=== PATIENT | female | born 1930 | race Caucasian/White ===

== ENCOUNTER → 2017-12-30 | Outpatient (CLI) | payer MEDICARE, OTHER ==
[~2017-12-30] MED LIST: ASPI81CH PO; AZIT500 PO; FOLI1 PO; LEVSOD50 PO; LIDO700A20 TOP; LISI5 PO; Miralax17 GM PO; NITR100CA PO; Norco 5-325 Ta1 EACH PO; POTCHL20ER PO; SACC250C PO; TORS10 PO
== END | disposition home or self-care (01) ==
LOC: LAB UCHC 15:21 → LAB SHORT 15:21
DX: N39.0 Urinary tract infection, site not specified (principal); R06.00 Dyspnea, unspecified; R44.3 Hallucinations, unspecified
CPT/HCPCS: 87077; 87086; 87186

== ENCOUNTER 2018-01-01 14:10 | Inpatient (IN) | payer MEDICARE, OTHER ==
[~2018-01-01] VITALS: Ht 152.4 cm; Wt 49.6 kg
[~2018-01-01 14:10] MED LIST changes: -AZIT500 PO; -LISI5 PO; -Miralax17 GM PO; -POTCHL20ER PO; -SACC250C PO; -TORS10 PO
[2018-01-01 14:54] LABS: PCO2 Arterial 27.7 mmHg (35-45); PO2 Arterial 47.2 mmHg (80-100); pH Blood Arterial 7.44 (7.35-7.45)
[2018-01-01 15:23] LABS: BASOPHILS ABSOLUTE AUTO 0.06 K/mm3 (0.00-0.23); BASOPHILS PERCENT AUTO 0 % (0-2); Hematocrit 41.3 % (33.0-51.0); LYMPHOCYTES ABSOLUTE AUTO 0.97 K/mm3 (0.84-5.20); LYMPHOCYTES PERCENT AUTO 7 % (21-46); MONOCYTES ABSOLUTE AUTO 0.65 K/mm3 (0.16-1.47); MONOCYTES PERCENT AUTO 5 % (4-13); Mean Corpuscular HGB Conc 31.5 g/dL (31.5-36.5); Mean Corpuscular Volume 102 fL (80-100); Mean Platelet Volume 11.6 fL (9.1-12.4); Platelet Count 176 K/mm3 (150-400); RDW Standard Deviation 48.5 fL (35.1-46.3); Red Blood Cell Count 4.06 M/mm3 (3.80-5.20); White Blood Cell Count 13.57 K/mm3 (4.00-11.30)
[2018-01-01 15:24] LABS: EOSINOPHILS PERCENT AUTO 0 % (0-6); IMMATURE GRAN ABSOLUTE AUTO 0.06 K/mm3 (0.00-0.10); IMMATURE GRAN PERCENT AUTO 0 % (0-1); NEUTROPHILS ABSOLUTE AUTO 11.83 K/mm3 (1.96-9.15); NEUTROPHILS PERCENT AUTO 87 % (41-73)
[2018-01-01 15:27] LABS: Influenza A Negative (NEGATIVE); Influenza B Negative (NEGATIVE)
[2018-01-01 16:03] LABS: Albumin, Blood 2.5 g/dL (3.4-5.0); Albumin/Globulin Ratio 0.4 (0.8-1.8); Bilirubin, Total 0.8 mg/dL (0.1-1.0); Bun/Creatinine Ratio 26.7 (12.0-20.0); Calcium, Blood 9.5 mg/dL (8.5-10.1); Creatinine, Blood 1.31 mg/dL (0.40-1.00); Globulin, Blood 6.4 g/dL (2.2-4.0); Potassium, Blood 5.4 mmol/L (3.5-5.5); Total Protein, Blood 8.9 g/dL (6.4-8.2)
[2018-01-02 05:31] LABS: Hematocrit 31.9 % (33.0-51.0); Hemoglobin 10.6 g/dL (11.5-16.0); Mean Corpuscular HGB 32.7 pg (26.0-34.0); Mean Corpuscular HGB Conc 33.2 g/dL (31.5-36.5); Mean Platelet Volume 10.6 fL (9.1-12.4); Platelet Count 175 K/mm3 (150-400); RDW Coefficient Variation 12.9 % (11.7-14.2); RDW Standard Deviation 46.5 fL (35.1-46.3); Red Blood Cell Count 3.24 M/mm3 (3.80-5.20); White Blood Cell Count 13.59 K/mm3 (4.00-11.30)
[2018-01-02 05:41] LABS: Mean Corpuscular Volume 99 fL (80-100)
[2018-01-02 06:15] LABS: Albumin, Blood 1.9 g/dL (3.4-5.0); Anion Gap 11 mmol/L (6-16); Blood Urea Nitrogen 32 mg/dL (8-24); Bun/Creatinine Ratio 32.3 (12.0-20.0); CO2, Blood 21 mmol/L (21-32); Calcium, Blood 8.5 mg/dL (8.5-10.1); Chloride, Blood 112 mmol/L (98-108); Creatinine, Blood 0.99 mg/dL (0.40-1.00); Glomerular Filtration Rate 56 (60-); Glucose, Blood 274 mg/dL (70-99); Phosphorus, Blood 2.1 mg/dL (2.5-4.9); Potassium, Blood 3.4 mmol/L (3.5-5.5); Sodium, Blood 144 mmol/L (136-145)
[2018-01-02 06:56] LABS: Thyroid Stimulating Hormone 0.139 uIU/mL (0.360-4.800)
[2018-01-03 05:07] LABS: BASOPHILS PERCENT AUTO 0 % (0-2); EOSINOPHILS ABSOLUTE AUTO 0.02 K/mm3 (0.00-0.68); EOSINOPHILS PERCENT AUTO 0 % (0-6); IMMATURE GRAN ABSOLUTE AUTO 0.05 K/mm3 (0.00-0.10); IMMATURE GRAN PERCENT AUTO 0 % (0-1); LYMPHOCYTES ABSOLUTE AUTO 1.17 K/mm3 (0.84-5.20); LYMPHOCYTES PERCENT AUTO 10 % (21-46); MONOCYTES ABSOLUTE AUTO 0.34 K/mm3 (0.16-1.47); MONOCYTES PERCENT AUTO 3 % (4-13); Mean Corpuscular HGB 32.1 pg (26.0-34.0); Mean Corpuscular HGB Conc 32.3 g/dL (31.5-36.5); Mean Corpuscular Volume 99 fL (80-100); Mean Platelet Volume 11.1 fL (9.1-12.4); NEUTROPHILS ABSOLUTE AUTO 10.13 K/mm3 (1.96-9.15); NEUTROPHILS PERCENT AUTO 87 % (41-73); Platelet Count 184 K/mm3 (150-400); RDW Coefficient Variation 13.2 % (11.7-14.2); RDW Standard Deviation 47.8 fL (35.1-46.3); Red Blood Cell Count 3.12 M/mm3 (3.80-5.20); White Blood Cell Count 11.71 K/mm3 (4.00-11.30)
[2018-01-03 05:35] LABS: Anion Gap 11 mmol/L (6-16); Blood Urea Nitrogen 24 mg/dL (8-24); Bun/Creatinine Ratio 34.6 (12.0-20.0); CO2, Blood 23 mmol/L (21-32); Calcium, Blood 8.6 mg/dL (8.5-10.1); Chloride, Blood 111 mmol/L (98-108); Creatinine, Blood 0.69 mg/dL (0.40-1.00); Glomerular Filtration Rate >60 (60-); Glucose, Blood 119 mg/dL (70-99); Sodium, Blood 145 mmol/L (136-145)
[2018-01-03 05:37] LABS: Free Thyroxine 1.18 ng/dL (0.70-1.60)
[2018-01-04 05:39] LABS: Hematocrit 33.5 % (33.0-51.0); Hemoglobin 10.9 g/dL (11.5-16.0); Mean Corpuscular HGB 31.8 pg (26.0-34.0); Mean Corpuscular HGB Conc 32.5 g/dL (31.5-36.5); Mean Corpuscular Volume 98 fL (80-100); Mean Platelet Volume 11.3 fL (9.1-12.4); Platelet Count 206 K/mm3 (150-400); RDW Coefficient Variation 13.2 % (11.7-14.2); RDW Standard Deviation 46.8 fL (35.1-46.3); Red Blood Cell Count 3.43 M/mm3 (3.80-5.20); White Blood Cell Count 11.08 K/mm3 (4.00-11.30)
[2018-01-04 06:01] LABS: Anion Gap 12 mmol/L (6-16); Blood Urea Nitrogen 16 mg/dL (8-24); CO2, Blood 20 mmol/L (21-32); Calcium, Blood 8.7 mg/dL (8.5-10.1); Chloride, Blood 108 mmol/L (98-108); Creatinine, Blood 0.62 mg/dL (0.40-1.00); Glomerular Filtration Rate >60 (60-); Glucose, Blood 216 mg/dL (70-99); Magnesium, Blood 1.7 mg/dL (1.6-2.4); Phosphorus, Blood 2.4 mg/dL (2.5-4.9); Potassium, Blood 3.7 mmol/L (3.5-5.5); Sodium, Blood 140 mmol/L (136-145)
[2018-01-04 06:04] LABS: Triiodothyronine, Free 1.04 pg/mL (2.18-3.98)
[2018-01-04 18:16] LABS: PCO2 Arterial 24.8 mmHg (35-45); PO2 Arterial 60.9 mmHg (80-100); pH Blood Arterial 7.51 (7.35-7.45)
[2018-01-05 05:56] LABS: Albumin, Blood 2.2 g/dL (3.4-5.0); Anion Gap 15 mmol/L (6-16); Blood Urea Nitrogen 34 mg/dL (8-24); Bun/Creatinine Ratio 41.9 (12.0-20.0); CO2, Blood 19 mmol/L (21-32); Calcium, Blood 8.8 mg/dL (8.5-10.1); Chloride, Blood 109 mmol/L (98-108); Creatinine, Blood 0.81 mg/dL (0.40-1.00); Glomerular Filtration Rate >60 (60-); Glucose, Blood 267 mg/dL (70-99); Phosphorus, Blood 4.1 mg/dL (2.5-4.9); Sodium, Blood 143 mmol/L (136-145)
[2018-01-05 08:00] LABS: PCO2 Arterial 25.9 mmHg (35-45); PO2 Arterial 265 mmHg (80-100); pH Blood Arterial 7.52 (7.35-7.45)
[2018-01-05 08:01] LABS: Hematocrit 32.2 % (33.0-51.0); Hemoglobin 10.5 g/dL (11.5-16.0); Mean Corpuscular HGB Conc 32.6 g/dL (31.5-36.5); Mean Corpuscular Volume 98 fL (80-100); Mean Platelet Volume 11.3 fL (9.1-12.4); Platelet Count 234 K/mm3 (150-400); RDW Coefficient Variation 13.3 % (11.7-14.2); RDW Standard Deviation 47.7 fL (35.1-46.3); Red Blood Cell Count 3.28 M/mm3 (3.80-5.20); White Blood Cell Count 12.58 K/mm3 (4.00-11.30)
[2018-01-05 08:28] LABS: BASOPHILS PERCENT MAN 0 % (0-2); EOSINOPHILS PERCENT MAN 0 % (0-6); LYMPHOCYTES ABSOLUTE MAN 0.62 K/mm3 (0.84-5.20); LYMPHOCYTES PERCENT MAN 5 % (21-46); MONOCYTES ABSOLUTE MAN 0.25 K/mm3 (0.16-1.47); MONOCYTES PERCENT MAN 2 % (4-13); NEUTROPHILS ABSOLUTE MAN 11.69 K/mm3 (1.96-9.15); SEG NEUTROPHILS PERCENT MAN 93 % (41-73); TOTAL CELLS COUNTED 100
[2018-01-05 20:27] LABS: Creatine Kinase MB 2.9 ng/mL (0.0-3.6); Creatine Kinase MB Index 7.1 (0.0-4.0)
[2018-01-05 20:35] LABS: Troponin I 0.576 ng/mL (0.000-0.040)
[2018-01-06 04:53] LABS: Hematocrit 30.4 % (33.0-51.0); Hemoglobin 9.8 g/dL (11.5-16.0); Mean Corpuscular HGB 31.9 pg (26.0-34.0); Mean Corpuscular HGB Conc 32.2 g/dL (31.5-36.5); Mean Corpuscular Volume 99 fL (80-100); Mean Platelet Volume 11.6 fL (9.1-12.4); Platelet Count 252 K/mm3 (150-400); RDW Coefficient Variation 13.4 % (11.7-14.2); RDW Standard Deviation 48.2 fL (35.1-46.3); Red Blood Cell Count 3.07 M/mm3 (3.80-5.20); White Blood Cell Count 11.66 K/mm3 (4.00-11.30)
[2018-01-06 05:13] LABS: Albumin, Blood 2.1 g/dL (3.4-5.0); Anion Gap 11 mmol/L (6-16); Blood Urea Nitrogen 36 mg/dL (8-24); Bun/Creatinine Ratio 40.6 (12.0-20.0); CHOL/HDL RATIO 3.9; CO2, Blood 25 mmol/L (21-32); Calcium, Blood 8.2 mg/dL (8.5-10.1); Chloride, Blood 109 mmol/L (98-108); Cholesterol 94 mg/dL (50-200); Creatinine, Blood 0.89 mg/dL (0.40-1.00); Glomerular Filtration Rate >60 (60-); Glucose, Blood 155 mg/dL (70-99); HDL Cholesterol 24 mg/dL (>39); LDL/HDL RATIO 1.9; Low Density Lipoprotein Chol 45 mg/dL (0-110); Phosphorus, Blood 2.9 mg/dL (2.5-4.9); Potassium, Blood 3.1 mmol/L (3.5-5.5); Sodium, Blood 145 mmol/L (136-145); Triglycerides 124 mg/dL (30-160); Very Low Density Lipoprot Chol 24 mg/dL (6-32)
[2018-01-06 05:16] LABS: Creatine Kinase MB 2.1 ng/mL (0.0-3.6); Creatine Kinase MB Index 5.4 (0.0-4.0); Troponin I 0.428 ng/mL (0.000-0.040)
[2018-01-07 05:17] LABS: Anion Gap 10 mmol/L (6-16); Blood Urea Nitrogen 35 mg/dL (8-24); Bun/Creatinine Ratio 42.1 (12.0-20.0); CO2, Blood 27 mmol/L (21-32); Calcium, Blood 8.2 mg/dL (8.5-10.1); Chloride, Blood 111 mmol/L (98-108); Creatinine, Blood 0.83 mg/dL (0.40-1.00); Glomerular Filtration Rate >60 (60-); Glucose, Blood 138 mg/dL (70-99); Potassium, Blood 3.1 mmol/L (3.5-5.5); Sodium, Blood 148 mmol/L (136-145)
[2018-01-07] MEDS ORDERED: AZIT500 PO (11:45)
[2018-01-07] MEDS ORDERED: Miralax17 GM PO (11:46)
[2018-01-07] MEDS ORDERED: SACC250C PO (11:47)
[2018-01-07] MEDS ORDERED: LISI5 PO (11:48)
[2018-01-07] MEDS ORDERED: TORS10 PO (11:49)
[2018-01-07] MEDS ORDERED: POTCHL20ER PO (11:49)
== END 2018-01-07 16:08 | disposition home or self-care (01) | DRG 291 ==
LOC: ER 14:10 → MEDS 15:19 → ENPENDDIS 01-07 11:00 → MEDS 01-07 16:08
PROVIDERS: Emergency Medicine; Internal Medicine
DX: I50.41 Acute combined systolic (congestive) and diastolic (congestive) heart failure (principal); G92 Toxic encephalopathy; J96.01 Acute respiratory failure with hypoxia; J18.9 Pneumonia, unspecified organism; N17.9 Acute kidney failure, unspecified; E87.2 Acidosis; R64 Cachexia; E86.0 Dehydration; N39.0 Urinary tract infection, site not specified; B96.20 Unspecified Escherichia coli [E. coli] as the cause of diseases classified elsewhere; R13.10 Dysphagia, unspecified; E87.6 Hypokalemia; Z86.73 Personal history of transient ischemic attack (TIA), and cerebral infarction without residual deficits; E03.9 Hypothyroidism, unspecified; Z96.642 Presence of left artificial hip joint; Z87.891 Personal history of nicotine dependence; Z66 Do not resuscitate; Z79.82 Long term (current) use of aspirin
CPT/HCPCS: 36415; 36600; 71045; 71046; 80048; 80053; 80061; 80069; 82550; 82553; 82803; 83605; 83735; 83880; 84439; 84443; 84481; 84484; 85025; 85027; 87040; 87077; 87086; 87186; 87804; 92610; 93005; 93010; 94640; 94760; 96365; 96375; 97110; 97116; 97162; 97166; 97530; 97535; 99285; C8923; G8978; G8979; G8987; G8988; G8996; G8997; J0456; J0696; J1650; J1940; J2001; J3480; J7030; J7050; Q9957

== ENCOUNTER → 2018-03-05 | Outpatient (CLI) | payer MEDICARE, OTHER ==
[~2018-03-05] MED LIST changes: +AZIT500 PO; +LISI5 PO; +Miralax17 GM PO; +POTCHL20ER PO; +SACC250C PO; +TORS10 PO
[2018-03-05 14:52] LABS: Appearance, Urine Clear (Clear); Bilirubin, Urine Neg (Neg); Blood, Urine 1+ (Neg); Color, Urine Yellow (P-Yellow); Glucose Qualitative, Urine Neg (Neg); Ketones, Urine Neg (Neg); Leukocyte Esterase, Urine Neg (Neg); Nitrite, Urine Neg (Neg); Protein, Urine Neg (Neg); Specific Gravity, Urine 1.025 (1.003-1.022); Urobilinogen, Urine NORM (Normal)
[2018-03-05 15:06] LABS: Bacteria Rare /hpf; Red Blood Cells, Urine 0-2 /hpf (0-2); Squamous Epithelial Cells Mod /hpf (Few); White Blood Cells, Urine 0-2 /hpf (0-5)
== END | disposition home or self-care (01) ==
LOC: LAB HH 12:30
PROVIDERS: Radiology Therapeutic Radiology
DX: N39.0 Urinary tract infection, site not specified (principal)
CPT/HCPCS: 81001

== ENCOUNTER 2018-08-29 13:46 | Emergency (ER) | payer MEDICARE, OTHER ==
[~2018-08-29] VITALS: Ht 152.4 cm; Wt 50.8 kg
[~2018-08-29 13:46] MED LIST changes: -Benadryl Itch28.3 G1 TOP; -EUCERIN CREME TOP; -HYDHCL25 PO
[2018-08-29] MEDS ORDERED: Benadryl Itch28.3 G1 TOP (15:38)
[2018-08-29] MEDS ORDERED: HYDHCL25 PO (16:09)
[2018-08-29] MEDS ORDERED: EUCERIN CREME TOP (16:09)
== END 2018-08-29 16:16 | disposition home or self-care (01) ==
LOC: ER 13:46
DX: R21 Rash and other nonspecific skin eruption (principal); N28.9 Disorder of kidney and ureter, unspecified; Z79.899 Other long term (current) drug therapy; Z79.82 Long term (current) use of aspirin; Z86.73 Personal history of transient ischemic attack (TIA), and cerebral infarction without residual deficits; F03.90 Unspecified dementia, unspecified severity, without behavioral disturbance, psychotic disturbance, mood disturbance, and anxiety; Z87.891 Personal history of nicotine dependence
CPT/HCPCS: 99282

== ENCOUNTER → 2018-08-29 | Outpatient (CLI) | payer MEDICARE, OTHER ==
[~2018-08-29] MED LIST changes: +Benadryl Itch28.3 G1 TOP; +EUCERIN CREME TOP; +HYDHCL25 PO
[2018-08-29 12:51] LABS: BASOPHILS ABSOLUTE AUTO 0.06 K/mm3 (0.00-0.23); BASOPHILS PERCENT AUTO 1 % (0-2); EOSINOPHILS ABSOLUTE AUTO 0.23 K/mm3 (0.00-0.68); EOSINOPHILS PERCENT AUTO 3 % (0-6); Hematocrit 39.2 % (33.0-51.0); Hemoglobin 12.6 g/dL (11.5-16.0); IMMATURE GRAN ABSOLUTE AUTO 0.03 K/mm3 (0.00-0.10); IMMATURE GRAN PERCENT AUTO 0 % (0-1); LYMPHOCYTES PERCENT AUTO 32 % (21-46); MONOCYTES ABSOLUTE AUTO 0.56 K/mm3 (0.16-1.47); MONOCYTES PERCENT AUTO 6 % (4-13); Mean Corpuscular HGB 30.9 pg (26.0-34.0); Mean Corpuscular HGB Conc 32.1 g/dL (31.5-36.5); Mean Corpuscular Volume 96 fL (80-100); Mean Platelet Volume 10.3 fL (9.1-12.4); NEUTROPHILS ABSOLUTE AUTO 5.01 K/mm3 (1.96-9.15); NEUTROPHILS PERCENT AUTO 58 % (41-73); Platelet Count 196 K/mm3 (150-400); RDW Coefficient Variation 12.8 % (11.7-14.2); RDW Standard Deviation 45.1 fL (35.1-46.3); Red Blood Cell Count 4.08 M/mm3 (3.80-5.20); White Blood Cell Count 8.69 K/mm3 (4.00-11.30)
[2018-08-29 13:01] LABS: Albumin, Blood 3.7 g/dL (3.4-5.0); Albumin/Globulin Ratio 0.9 (0.8-1.8); Bilirubin, Total 0.3 mg/dL (0.1-1.0); Bun/Creatinine Ratio 13.3 (12.0-20.0); Calcium, Blood 8.8 mg/dL (8.5-10.1); Creatinine, Blood 1.43 mg/dL (0.40-1.00); Globulin, Blood 4.3 g/dL (2.2-4.0); Potassium, Blood 3.4 mmol/L (3.5-5.5)
== END | disposition home or self-care (01) ==
LOC: LAB EV 12:45 → LAB SHORT 12:45
PROVIDERS: General Practice
DX: L29.9 Pruritus, unspecified (principal)
CPT/HCPCS: 80053; 85025

== ENCOUNTER → 2019-01-29 | Outpatient (CLI) | payer MEDICARE, OTHER ==
[~2019-01-29] MED LIST changes: +Benadryl Itch28.3 G1 TOP; +EUCERIN CREME TOP; +HYDHCL25 PO
[2019-01-29 12:35] LABS: BASOPHILS ABSOLUTE AUTO 0.03 K/mm3 (0.00-0.23); BASOPHILS PERCENT AUTO 0 % (0-2); EOSINOPHILS ABSOLUTE AUTO 0.03 K/mm3 (0.00-0.68); EOSINOPHILS PERCENT AUTO 0 % (0-6); Hematocrit 35.3 % (33.0-51.0); Hemoglobin 11.3 g/dL (11.5-16.0); IMMATURE GRAN ABSOLUTE AUTO 0.05 K/mm3 (0.00-0.10); IMMATURE GRAN PERCENT AUTO 1 % (0-1); LYMPHOCYTES PERCENT AUTO 14 % (21-46); MONOCYTES ABSOLUTE AUTO 0.21 K/mm3 (0.16-1.47); MONOCYTES PERCENT AUTO 3 % (4-13); Mean Corpuscular HGB 31.1 pg (26.0-34.0); Mean Corpuscular Volume 97 fL (80-100); Mean Platelet Volume 9.6 fL (9.1-12.4); NEUTROPHILS ABSOLUTE AUTO 5.46 K/mm3 (1.96-9.15); NEUTROPHILS PERCENT AUTO 82 % (41-73); Platelet Count 176 K/mm3 (150-400); RDW Coefficient Variation 14.8 % (11.7-14.2); RDW Standard Deviation 51.8 fL (35.1-46.3); Red Blood Cell Count 3.63 M/mm3 (3.80-5.20); White Blood Cell Count 6.68 K/mm3 (4.00-11.30)
[2019-01-29 12:38] LABS: Bun/Creatinine Ratio 15.4 (12.0-20.0); Calcium, Blood 8.6 mg/dL (8.5-10.1); Creatinine, Blood 1.3 mg/dL (0.40-1.00); Potassium, Blood 3.5 mmol/L (3.5-5.5)
[2019-01-30 14:31] LABS: Appearance, Urine Cloudy (Clear); Bilirubin, Urine Neg (Neg); Blood, Urine 1+ (Neg); Color, Urine Yellow (P-Yellow); Glucose Qualitative, Urine Neg (Normal); Ketones, Urine Neg (Neg); Leukocyte Esterase, Urine 2+ (Neg); Nitrite, Urine Pos (Neg); Protein, Urine Trace (Neg); Urobilinogen, Urine NORM (Normal)
[2019-01-30 14:32] LABS: Bacteria Many /hpf; Squamous Epithelial Cells Few /hpf (Few)
[2019-01-30 14:34] LABS: White Blood Cells, Urine TNTC /hpf (0-5)
== END | disposition home or self-care (01) ==
LOC: LAB EV 12:29 → LAB SHORT 12:29
PROVIDERS: Physician Assistant Surgical
DX: R05 Cough (principal)
CPT/HCPCS: 80048; 81001; 85025

== ENCOUNTER 2019-04-04 14:21 | Inpatient (IN) | payer MEDICARE, OTHER ==
[~2019-04-04] VITALS: Ht 157.5 cm; Wt 52.2 kg
[2019-04-04] MEDS ORDERED: PRED20 PO (15:17)
[2019-04-04] MEDS ORDERED: EUTHYROX25 MCG PO (15:18)
[2019-04-04] MEDS ORDERED: FOLI400 PO (15:18)
[2019-04-04] MEDS ORDERED: CHOL10002 PO (15:19)
[2019-04-04 15:37] LABS: BASOPHILS ABSOLUTE AUTO 0.01 K/mm3 (0.00-0.23); BASOPHILS PERCENT AUTO 0 % (0-2); EOSINOPHILS ABSOLUTE AUTO 0.01 K/mm3 (0.00-0.68); EOSINOPHILS PERCENT AUTO 0 % (0-6); Hematocrit 39.3 % (33.0-51.0); Hemoglobin 12.1 g/dL (11.5-16.0); IMMATURE GRAN ABSOLUTE AUTO 0.11 K/mm3 (0.00-0.10); IMMATURE GRAN PERCENT AUTO 1 % (0-1); LYMPHOCYTES ABSOLUTE AUTO 1.35 K/mm3 (0.84-5.20); LYMPHOCYTES PERCENT AUTO 9 % (21-46); MONOCYTES ABSOLUTE AUTO 0.56 K/mm3 (0.16-1.47); MONOCYTES PERCENT AUTO 4 % (4-13); Mean Corpuscular HGB 30.9 pg (26.0-34.0); Mean Corpuscular HGB Conc 30.8 g/dL (31.5-36.5); Mean Corpuscular Volume 100 fL (80-100); Mean Platelet Volume 9.7 fL (9.1-12.4); NEUTROPHILS ABSOLUTE AUTO 12.89 K/mm3 (1.96-9.15); NEUTROPHILS PERCENT AUTO 86 % (41-73); Platelet Count 144 K/mm3 (150-400); RDW Coefficient Variation 14.1 % (11.7-14.2); RDW Standard Deviation 51.8 fL (35.1-46.3); Red Blood Cell Count 3.92 M/mm3 (3.80-5.20); White Blood Cell Count 14.93 K/mm3 (4.00-11.30)
[2019-04-04 15:50] LABS: Albumin, Blood 2.7 g/dL (3.4-5.0); Albumin/Globulin Ratio 0.7 (0.8-1.8); Bilirubin, Total 0.7 mg/dL (0.1-1.0); Calcium, Blood 8.3 mg/dL (8.5-10.1); Globulin, Blood 3.7 g/dL (2.2-4.0); Potassium, Blood 4.5 mmol/L (3.5-5.5); Total Protein, Blood 6.4 g/dL (6.4-8.2)
[2019-04-04 16:51] LABS: Source, Urine Clean Catch
[2019-04-04 17:08] LABS: Blood, Urine 4+ (Neg); Glucose Qualitative, Urine Neg (Neg); Ketones, Urine 1+ (Neg); Leukocyte Esterase, Urine 3+ (Neg); Nitrite, Urine Pos (Neg); Protein, Urine 3+ (Neg); Specific Gravity, Urine 1.025 (1.003-1.022); Urobilinogen, Urine 1+ (Normal)
[2019-04-04 17:39] LABS: Bilirubin, Urine 1+ (Neg)
[2019-04-04 17:40] LABS: Appearance, Urine Turbid (Clear); Color, Urine Amber (P-Yellow); Squamous Epithelial Cells Few /hpf (Few)
[2019-04-04 17:41] LABS: Amorphous Mod (0-Heavy); Bacteria Many /hpf; Red Blood Cells, Urine 0-2 /hpf (0-2); White Blood Cells, Urine TNTC /hpf (0-5)
--- NOTE | 2019-04-05 05:03 | NUR ---
SHIFT SUMMARY PT NEW ED ADMIT THIS EVENING. PT ALERT, ORIENTED TO SELF AND FAMILY. PT HAS A HX OF DEMENTIA. PLEASANTLY CONFUSED. GRANDDAUGHTER GAVE PT A SIP OF WATER AND PT HAD A VERY DIFFICULT TIME SWALLOWING IT. FAMILY REPORTS THAT PT HAS BEEN HAVING MORE AND MORE A DIFFICULT TIME SWALLOWING RECENTLY. DID NOT ATTEMPT TO GIVE PILLS AFTER. PT DOES NOT FOLLOW DIRECTIONS WELL. INCONTINENT OF URINE AND STOOL THIS EVENING. ATTENDS IN PLACE. PT REMAINED IN BED THROUGHOUT THE SHIFT. PT SLEPT WELL THROUGH MOST OF THE NIGHT WHEN NOT BEING WOKEN BY STAFF. PT DID NOT ATTEMPT TONIGHT TO GET OOB. HOWEVER, BED ALARM REMAINED ON FOR SAFETY. PT'S LUNGS COARSE. FAMILY REPORTS THIS IS PT'S BASELINE. PT REMAINS ON RA AND DOES APPEAR TO BE IN ANY RESPIRATORY DISTRESS. NONPRODUCTIVE COUGH AT TIMES. PT DENIES PAIN AND DOES NOT HAVE ANY NONVERBAL S/S OF PAIN. VSS. WILL CONTINUE TO MONITOR.
[2019-04-05 05:19] LABS: BASOPHILS ABSOLUTE AUTO 0.01 K/mm3 (0.00-0.23); BASOPHILS PERCENT AUTO 0 % (0-2); EOSINOPHILS ABSOLUTE AUTO 0.03 K/mm3 (0.00-0.68); EOSINOPHILS PERCENT AUTO 0 % (0-6); Hematocrit 34.6 % (33.0-51.0); Hemoglobin 10.7 g/dL (11.5-16.0); IMMATURE GRAN ABSOLUTE AUTO 0.09 K/mm3 (0.00-0.10); IMMATURE GRAN PERCENT AUTO 1 % (0-1); LYMPHOCYTES ABSOLUTE AUTO 1.33 K/mm3 (0.84-5.20); LYMPHOCYTES PERCENT AUTO 13 % (21-46); MONOCYTES ABSOLUTE AUTO 0.44 K/mm3 (0.16-1.47); MONOCYTES PERCENT AUTO 4 % (4-13); Mean Corpuscular HGB 30.8 pg (26.0-34.0); Mean Corpuscular HGB Conc 30.9 g/dL (31.5-36.5); Mean Corpuscular Volume 100 fL (80-100); NEUTROPHILS ABSOLUTE AUTO 8.25 K/mm3 (1.96-9.15); NEUTROPHILS PERCENT AUTO 81 % (41-73); Platelet Count 136 K/mm3 (150-400); RDW Coefficient Variation 13.8 % (11.7-14.2); RDW Standard Deviation 50.3 fL (35.1-46.3); Red Blood Cell Count 3.47 M/mm3 (3.80-5.20); White Blood Cell Count 10.15 K/mm3 (4.00-11.30)
[2019-04-05 05:36] LABS: Anion Gap 6 mmol/L (6-16); Blood Urea Nitrogen 17 mg/dL (8-24); Bun/Creatinine Ratio 19.7 (12.0-20.0); CO2, Blood 27 mmol/L (21-32); Calcium, Blood 8.2 mg/dL (8.5-10.1); Chloride, Blood 109 mmol/L (98-108); Creatinine, Blood 0.86 mg/dL (0.40-1.00); Glomerular Filtration Rate >60 (60-); Glucose, Blood 83 mg/dL (70-99); Potassium, Blood 3.2 mmol/L (3.5-5.5); Sodium, Blood 142 mmol/L (136-145)
--- NOTE | 2019-04-05 13:55 | NUR ---
Initial palliative care consult: Requested to see pt per nsg. Kathy is an 88 year old with a history of dementia. She lives with her dtr who is her paid caregiver. She has a [facility] piece work checker who pt's dtr cannot remember the name at this time. Dtr, Sher, and granddaughter, Elle, are at the bedside. Kathy is pleasantly confused during my visit. She is alert but forgetful. She is asking for coffee. She has macular degeneration. Sher reports Kathy has been on [facility] services in the past. She was discharged from hospice as she had improved. Sher reports for about the last month or so Kathy has started to decline. She is needing assistance with all ADLs. Her weight has decreased about 13 pounds. She currently has a UTI which family would like to have treated. They would like to resume hospice services when Kathy is discharged from the hospital. She has been incontinent recently and wears briefs. She has been having difficulty with swallowing at times. Sher would like to continue to care for Kathy at home if Kathy is able to ambulate with SBA. If Kathy isn't mobile, Sher reports that she will have to place her in a facility with hospice care. Explained that family would be responsible for cost of facility if pt is placed on hospice in a facility. Pt's granddaughter assists with her care when she is in town, however sharita reports she will be traveling for 6 weeks and will not be able to help out with Kathy's care needs. Family is requesting hospice referral. Pt will likely need a PT eval to establish her current level of function. Spoke with Virginia Keith, environmental restoration planner. Virginia plans to contact [facility] and pt's dtr, Sher. Spoke with Damaris [facility] hospice liason. Damaris will start an intake for pt. Virginia plans to speak with for orders after she talks to [facility] and Sher. Kathy needed to be fed lunch today. She is pleasantly confused and cooperative with care at this time. She denied any pain, nausea or SOB. She appears to be comfortable during the time of this visit. PC to follow for symptom management and care planning. Kathy has a POLST form at home. She is a DNR with limited interventions at this time according to her dtr and grddtr.
--- NOTE | 2019-04-05 19:28 | NUR ---
SHIFT SUMMARY- PT IS ALERT AND ORIENTED TO SELF AND FAMILY. PT HAS FREQUENT HALLUCINATIONS BUT IS EASILY REDIRECTABLE AND PLEASENT. PT IS A FALL RISK AND BED ALARM IS ON. PT USES THE BEDPAN BUT IS FREQUENTLY INCONTINENT. PT HAS HAD NO C/O PAIN T/O THE SHIFT. PT REQUIRES FEEDING ASSISTANCE HOWEVER SHE DID FEED HERSELF PART OF DINNER. PT HAS A PALLIATIVE CARE CONSULT AND THE PLAN IS FOR HER TO DISCHARGE ON HOSPICE. PER REPORT FROM THE FAMILY PT HAS BEEN ON HOSPICE BEFORE AND WAS DOING WELL SO SHE WAS REMOVED FROM IT, PT HAS BEEN STEADILY DECLINING SINCE HOSPICE DISCHARGE PER REPORT FROM HER FAMILY. PT EVAL IS ORDERED TO DETERMINE PT MOBILITY.
[2019-04-06 05:08] LABS: BASOPHILS ABSOLUTE AUTO 0.02 K/mm3 (0.00-0.23); BASOPHILS PERCENT AUTO 0 % (0-2); EOSINOPHILS ABSOLUTE AUTO 0.01 K/mm3 (0.00-0.68); EOSINOPHILS PERCENT AUTO 0 % (0-6); Hematocrit 38.3 % (33.0-51.0); Hemoglobin 11.9 g/dL (11.5-16.0); IMMATURE GRAN ABSOLUTE AUTO 0.11 K/mm3 (0.00-0.10); IMMATURE GRAN PERCENT AUTO 1 % (0-1); LYMPHOCYTES ABSOLUTE AUTO 1.17 K/mm3 (0.84-5.20); LYMPHOCYTES PERCENT AUTO 9 % (21-46); MONOCYTES ABSOLUTE AUTO 0.72 K/mm3 (0.16-1.47); MONOCYTES PERCENT AUTO 6 % (4-13); Mean Corpuscular HGB 31.5 pg (26.0-34.0); Mean Corpuscular HGB Conc 31.1 g/dL (31.5-36.5); Mean Corpuscular Volume 101 fL (80-100); NEUTROPHILS ABSOLUTE AUTO 10.94 K/mm3 (1.96-9.15); NEUTROPHILS PERCENT AUTO 84 % (41-73); RDW Coefficient Variation 13.4 % (11.7-14.2); RDW Standard Deviation 50.4 fL (35.1-46.3); Red Blood Cell Count 3.78 M/mm3 (3.80-5.20); White Blood Cell Count 12.97 K/mm3 (4.00-11.30)
[2019-04-06 05:20] LABS: Mean Platelet Volume 10.5 fL (9.1-12.4); Platelet Count 134 K/mm3 (150-400)
--- NOTE | 2019-04-06 06:16 | NUR ---
SHIFT SUMMARY ALERT TO SELF, ANSWERS WITH COFABULATION. DID NOT REST MUCH OVERNIGHT. NO C/O PAIN/DISCOMFORT. FREQUENT BED EXITS; EASILY RE-DIRECTED. VSS/AFEBRILE. NO ACUTE CHANGES OVERNIGHT. BED IN LOWEST POSITION. ALARM ON. CALL LIGHT AND BELONGINGS WITHIN REACH. WCTM.
--- NOTE | 2019-04-06 17:46 | NUR ---
PT IS AOX3 AND COOPERATIVE OF ALL CARE. PT HAS MOMENTS OF CONFUSION. PT WORKED WITH PHYSICAL THERAPY AND HAD FAMILY IN TO VISIT. PT'S DAUGHTER IS CONCERNED ABOUT HOW MUCH CARE PT WILL NEED AND HAD A CASEMANGER SUMMONED TO TALK WITH HER AND HER DAUGHTER. PT IN INCONTENT AND RESTING IN BED AT THIS TIME. WILL CONTINUE MONITOR.
--- NOTE | 2019-04-06 18:37 | NUR ---
[facility] care initial visit: Mrs. Yancey was alone in room and sideways in bed. She said she is comfortable that way. She is talkative and confused and we had a kayla, albeit disjointed conversation. She denied pain or worry. She did not know where she is, but this did not appear to bother her. Per chart, she is non-congregation. She appeared to enjoy companionship and touch. I will remain available to pt and family.
--- NOTE | 2019-04-06 22:48 | NUR ---
04/06/19 2240 NEW IV SITE STARTED. PT CONFUSED AND COMBATIVE WITH PROCEDURE AND 2 STAFF ASSISTED WITH PROCEDURE. PT ALSO HAS VUSUAL AND AUDITORY HALLUCINATIONS. REQUESTED "SMIRNOFF" EARLIER WHEN ASKED WHAT SHE WOULD LIKE TO DRINK. RE-ORIENTED TO SURROUNDINGS AND INFORMED ALCOHOLIC DRINKS ARE NOT ALLOWED IN HOSPITAL.
--- NOTE | 2019-04-07 05:22 | NUR ---
04/07/19 0515 SLEEPING HEAVILY BUT AROUSES WITH CARE. MED GIVEN AND REPOSITIONED TO OTHER SIDE. CARRIE-CARE GIVEN FOR INCONTINENCE. BARRIER CREAM TO PINK PERINEAL AREA.
[2019-04-07] MEDS ORDERED: DOCU100 PO (09:10)
[2019-04-07] MEDS ORDERED: Vsl#3 Capsule1 EACH PO (09:10)
[2019-04-07] MEDS ORDERED: CIPR250 PO (09:11)
--- NOTE | 2019-04-07 10:20 | NUR ---
discharge DR LLAMAS SPEAK TO FAMILY THIS AM, PLACE ORDERS FOR D/C HOME W HOSPICE. HOMEHEALTH/SAFETY RISK LEAD MAKE ARRANGEMENTS FOR HOSPICE. PT DAUGHTER & G-DAUGHTER IN TO ASSIST HER TO DRESS/GATHER BELONGINGS. D/C INSTRUCT PROVIDED TO THEM. IV D/C INTACT. PT ORIENTED TO SELF, LETHARGIC. REFUSED BF & MEDS THIS AM. IRRITABLE W CARE. W/C VAN TRANSPORTATION ARRANGED FOR 1100.
== END 2019-04-07 12:29 | disposition hospice, home (50) | DRG 689 ==
LOC: ER 14:21 → MEDS 19:04 → ENPENDDIS 04-07 08:47 → MEDS 04-07 12:29
PROVIDERS: Emergency Medicine; ADMIT Internal Medicine
DX: N39.0 Urinary tract infection, site not specified (principal); G92 Toxic encephalopathy; I50.42 Chronic combined systolic (congestive) and diastolic (congestive) heart failure; F03.90 Unspecified dementia, unspecified severity, without behavioral disturbance, psychotic disturbance, mood disturbance, and anxiety; E03.9 Hypothyroidism, unspecified; M19.90 Unspecified osteoarthritis, unspecified site; B96.20 Unspecified Escherichia coli [E. coli] as the cause of diseases classified elsewhere; I11.0 Hypertensive heart disease with heart failure; Z66 Do not resuscitate; Z86.718 Personal history of other venous thrombosis and embolism; Z87.440 Personal history of urinary (tract) infections; Z79.52 Long term (current) use of systemic steroids; Z79.899 Other long term (current) drug therapy; Z87.891 Personal history of nicotine dependence; Z86.73 Personal history of transient ischemic attack (TIA), and cerebral infarction without residual deficits
CPT/HCPCS: 36415; 71045; 80048; 80053; 81001; 85025; 87077; 87086; 87186; 93005; 93010; 96361; 96365; 97116; 97162; 97530; 99285-25; J0696; J0744; J1650; J7030; J7120; J7512; P9612